=== PATIENT | male | born 1990 | race Asian ===

== ENCOUNTER 2019-05-13 13:56 | Emergency (ER) | payer OTHER ==
[~2019-05-13] VITALS: Ht 182.9 cm; Wt 90.7 kg
[2019-05-13] MEDS ORDERED: CYCLOBENZAPRINE10 MG PO (19:12)
[2019-05-13] MEDS ORDERED: NORCO 5-325 TA1 EACH PO (19:12)
== END 2019-05-13 19:26 | disposition home or self-care (01) ==
LOC: ED 13:56
DX: Z04.1 Encounter for examination and observation following transport accident (principal); F17.200 Nicotine dependence, unspecified, uncomplicated; V89.2XXA Person injured in unspecified motor-vehicle accident, traffic, initial encounter
CPT/HCPCS: 71046; 71260; 74177; 99284-25; J7030; Q9967